=== PATIENT | female | born 1930 | race Caucasian/White ===

== ENCOUNTER 2020-10-28 09:25 | Day surgery (SDC) | payer OTHER, MEDICARE ==
[2020-10-23 12:19] VITALS: BMI 24.5
[2020-10-28] MEDS: CIPROFLOXACIN 0.3% EYE DROPS 5 ML BOTTLE ONE ×3 (11:10→11:20)
[2020-10-28] MEDS: PHENYLEPHRINE 2.5% OPHTH SOLN 15 ML BOTTLE ONE ×3 (11:10→11:20)
[2020-10-28] MEDS: CYCLOPENTOLATE 2% OPHTH SOLN 2 ML BOTTLE ONE ×3 (11:10→11:20)
[2020-10-28] MEDS: TROPICAMIDE 1% OPHTH SOLN 15 ML BOTTLE ONE ×3 (11:10→11:20)
[2020-10-28] MEDS ORDERED: PHENYLEPHRINE/KETOROLAC 4 ML VIAL IO ONE (12:25)
[2020-10-28] MEDS ORDERED: TRYPAN BLUE 0.5 ML DISP.SYRIN ONE (12:25)
[2020-10-28] MEDS ORDERED: MIDAZOLAM HCL 2 MG/2 ML SINGLE DOSE VIAL ONE (12:41)
[2020-10-28 14:03] VITALS: TEMP 98.7
[2020-10-28 14:15] VITALS: BP 135/64; PULSE 66
== END 2020-10-28 14:00 ==
LOC: FASU 09:25
PROVIDERS: ATTEND Ophthalmology
PROC: 08RJ3JZ Replacement of Right Lens with Synthetic Substitute, Percutaneous Approach (ICD-10-PCS; principal; 2020-10-28 12:41)
DX: H26.8 Other specified cataract (principal); H21.541 Posterior synechiae (iris), right eye
CPT/HCPCS: 82962; J1097